=== PATIENT | male | born 1985 | race Caucasian/White ===

== ENCOUNTER 2024-07-17 04:43 | Emergency (ER) | payer MEDICAID ==
[~2024-07-17] VITALS: Ht 182.9 cm; Wt 65.8 kg
[2024-07-17] MEDS ORDERED: LIDOCAINE HCL/PF 1% 30 ML SDV ONE (05:13)
[2024-07-17] MEDS ORDERED: TDAP [DIPH/PERTUSSIS/TET] 0.5 ML VIAL IM ONE (05:26)
[2024-07-17] MEDS: LIDOCAINE HCL/PF 1% 30 ML VIAL TP ONE (05:29)
[2024-07-17 05:33] VITALS: BP 131/74; TEMP 98; O2SAT 99
[2024-07-17] MEDS: TDAP [DIPH/PERTUSSIS/TET] 0.5 ML VIAL IM ONE (05:34)
== END 2024-07-17 06:01 | disposition home or self-care (01) ==
LOC: ER 04:47
DX: S61.210A Laceration without foreign body of right index finger without damage to nail, initial encounter (principal); S61.213A Laceration without foreign body of left middle finger without damage to nail, initial encounter; Z91.030 Bee allergy status; W25.XXXA Contact with sharp glass, initial encounter; Y93.89 Activity, other specified; Y92.89 Other specified places as the place of occurrence of the external cause; Y99.8 Other external cause status
CPT/HCPCS: 12002; 90471; 90715; 99283; J3490

== ENCOUNTER 2024-07-31 13:29 | Emergency (ER) | payer MEDICAID ==
[~2024-07-31] VITALS: Ht 182.9 cm; Wt 65.8 kg
[2024-07-31 13:51] VITALS: BP 142/78; TEMP 98.2
[2024-07-31 14:50] VITALS: O2SAT 100
== END 2024-07-31 14:51 | disposition home or self-care (01) ==
LOC: ER 13:29
DX: S61.211D Laceration without foreign body of left index finger without damage to nail, subsequent encounter (principal); Z91.030 Bee allergy status; X58.XXXD Exposure to other specified factors, subsequent encounter